=== PATIENT | female | born 1945 | race Two or more races ===

== ENCOUNTER → 2017-07-23 | Outpatient (CLI) | payer MEDICARE, OTHER ==
[~2017-07-23] MED LIST: ALEN70TA3 PO; AZEL23SP NS; CAND32TA2 PO; CYCL1DRO OP; ESCITALOPRAM OX10 MG PO; FEXO180T81 PO; IBUP1TAB84 PO; OMEP40CA5 PO; SIMV20TA3 PO
--- NOTE | 2017-07-25 10:59 | KCIC ---
DATE: 07/23/2017 EXAM: MAMMO CEASAR SCREENING BILATERAL HISTORY: Routine screening COMPARISON: 06/27/2016 This study was interpreted with the benefit of Computerized Aided Detection (CAD). The breast parenchyma is heterogeneously dense, which could reduce sensitivity of mammography. Breast parenchyma level C. FINDINGS: The fibroglandular tissues are heterogeneous in a nodular pattern. No new or enlarging breast densities are seen. Benign type calcifications are evident. No suspicious microcalcifications have developed. IMPRESSION: Stable mammograms without evidence of malignancy. BI-RADS CATEGORY: 2 BENIGN FINDING(S) RECOMMENDED FOLLOW-UP: 12M 12 MONTH FOLLOW-UP PQRS compliance statement: Patient information was entered into a reminder system with a target due date for the next mammogram. Mammography is a sensitive method for finding small breast cancers, but it does not detect them all and is not a substitute for careful clinical examination. A negative mammogram does not negate a clinically suspicious finding and should not result in delay in biopsying a clinically suspicious abnormality. "Our facility is accredited by the [employer] Mammography Program."
== END | disposition home or self-care (01) ==
LOC: KCIC MAMMO 15:06
PROVIDERS: ATTEND Family Medicine
DX: Z12.31 Encounter for screening mammogram for malignant neoplasm of breast (principal)
CPT/HCPCS: 77063; G0202; 77067

== ENCOUNTER → 2017-08-01 | Outpatient (CLI) | payer MEDICARE, OTHER ==
--- NOTE | 2017-08-01 12:17 | KCIC ---
MR of the left knee Indication: Pain when kneeling for 2 weeks. No known injury. Technique: The standard multiplanar sequences are obtained. Findings: Medial meniscus:Intact. Lateral meniscus: Intact. Anterior cruciate ligament: Intact Posterior cruciate ligament: Intact Medial collateral ligament: Intact. Iliotibial band: Intact. Posterolateral structures: Fibular collateral ligament, biceps tendon and popliteus tendon are intact. Extensor mechanism: Intact. Fluid: Trace joint effusion. No significant Young's cyst. Articular cartilage -patellofemoral joint:Intact -medial compartment:Intact -lateral compartment:Intact Bones: No significant lesion or acute fracture. Soft tissue: Unremarkable Impression: No internal derangement or acute abnormality. Electronically signed by: Elver Aguila MD (08/01/2017 12:13 PM) [facility]
== END | disposition home or self-care (01) ==
LOC: KCIC MRI 10:38
PROVIDERS: ATTEND Family Medicine
DX: M17.12 Unilateral primary osteoarthritis, left knee (principal)
CPT/HCPCS: 73721

== ENCOUNTER → 2019-08-14 | Day surgery (SDC) | payer MEDICARE, OTHER ==
[~2019-08-14] MED LIST changes: +ASPI-630 PO; +CAND32TA19 PO; -CAND32TA2 PO; +GLUC-11 PO; +IV RINGERS,LACTATED 1000ML 1,000 ML IV ONE; +LEVO25TA4 PO; +LIDOCAINE 2% PF 5 ML VIAL. ONE; +METO-313 PO; +OMEP40CA45 PO; -OMEP40CA5 PO; +PRAV20TA2 PO; +PROPOFOL 40 ML IV ONE; +SIMV20TA18 PO; -SIMV20TA3 PO
[2019-08-14 13:00] VITALS: BP 156/68
--- NOTE | 2019-08-18 14:07 | PATHOLOGY ---
[facility] Accession Number: [id number] . 01 Material submitted: . esophagus - DISTAL ESOPHAGUS BIOPSY. Modifiers: distal . 01 Clinical history: . Cough, GERD . 02 Diagnosis: Esophageal biopsies, distal esophagus: - Segments of hyperplastic squamous esophageal mucosa consistent with reflux esophagitis. (JPM:[facility] 08/18/2019) [facility] 08/18/2019 0922 Local . 02 Comment: Sections of the distal esophageal biopsy reveal segments of tangentially oriented hyperplastic squamous esophageal mucosa with focally attached lamina propria showing chronic inflammation. The findings are consistent with reflux esophagitis. There is no evidence of Dixon's change, dysplasia or malignancy. (JPM:[facility] 08/18/2019) . 02 Electronically signed: . Doni Castellanos MD, Pathologist NPI- [id number] . 01 Gross description: . The specimen is received in formalin, labeled "Jen Marley, distal esophagus". Received are four segments of pale cunningham soft tissue ranging in size from 0.2 to 0.5 cm in maximum dimensions. The specimen is submitted entirely in cassette A1. ([facility]; 08/15/2019) QAC/QAC 08/15/2019 0946 Local . 02 Pathologist provided ICD-10: K20.9 . 02 CPT . 407103 Specimen Comment: A courtesy copy of this report has been sent to [phone], [phone] Specimen Comment: [id number] Specimen Comment: Report sent to / DR ALLEN Performed at: 01 [facility] [address], [place], [place] [id number] MD Tyrell Gill MD Phone: [phone] Performed at: 02 [facility] [address] [place], [place] [id number] MD Doni Castellanos MD Phone: [phone]
== END ==
LOC: ENDOS 10:59
PROVIDERS: ATTEND Internal Medicine Gastroenterology
DX: R12 Heartburn (principal); K21.0 Gastro-esophageal reflux disease with esophagitis; K29.50 Unspecified chronic gastritis without bleeding; F32.9 Major depressive disorder, single episode, unspecified; E78.00 Pure hypercholesterolemia, unspecified; I25.2 Old myocardial infarction; F15.90 Other stimulant use, unspecified, uncomplicated; Z86.010 Personal history of colon polyps; Z79.82 Long term (current) use of aspirin; Z90.710 Acquired absence of both cervix and uterus; Z98.890 Other specified postprocedural states
CPT/HCPCS: 43239; J2001; J2704; 88305

== ENCOUNTER → 2021-01-11 | Day surgery (SDC) | payer MEDICARE, OTHER ==
[~2021-01-11] MED LIST changes: -LIDOCAINE 2% PF 5 ML VIAL. ONE; +LISI20TA18 PO; +PROPOFOL 10 MG/ML (20ML) VIAL. IV ONE; -PROPOFOL 40 ML IV ONE
[2021-01-11 13:35] VITALS: BP 125/59
== END | disposition home or self-care (01) ==
LOC: ENDOS 12:11
PROVIDERS: ATTEND Internal Medicine Gastroenterology
DX: R19.5 Other fecal abnormalities (principal); K64.0 First degree hemorrhoids; K57.30 Diverticulosis of large intestine without perforation or abscess without bleeding; I10 Essential (primary) hypertension; E78.00 Pure hypercholesterolemia, unspecified; K21.9 Gastro-esophageal reflux disease without esophagitis; M19.90 Unspecified osteoarthritis, unspecified site; E03.9 Hypothyroidism, unspecified; F41.9 Anxiety disorder, unspecified; Z90.710 Acquired absence of both cervix and uterus; Z98.890 Other specified postprocedural states; Z79.899 Other long term (current) drug therapy; Z79.82 Long term (current) use of aspirin; Z20.822 Contact with and (suspected) exposure to COVID-19
CPT/HCPCS: 45378; 87426; J2704